=== PATIENT | male | born 1955 | race Caucasian/White ===

== ENCOUNTER 2021-04-14 06:54 | Day surgery (SDC) | payer BC ==
[~2021-04-14] VITALS: Ht 188 cm; Wt 115.8 kg
[~2021-04-14 06:54] MED LIST: ASPIRIN E.C. 8181 MG PO; CALCIUM600 M1 PO; LIPITOR20 MG PO; LOPRESSOR 225 MG/TAB PO; NEXIUM 40MG40 MG PO; NITRO-DUR0.4 MG/PAT TD; NITROSTAT0.4 MG/TAB SL; OMEGA-3 FISH1200 MG PO; PLAVIX 75MG TAB75 MG PO; PRILOSEC 20MG20 MG PO; TOPROL XL100 MG PO; VITAMIN B-1000 MCG/T PO; ZESTRIL 5MG5 MG PO; ZOFRAN 4MG T4 MG/TAB PO
--- NOTE | 2021-04-14 07:15 | NUR ---
PATIENT AMBULATED INTO ENDO UNIT WITH STEADY GAIT AND WAS ACCOMPANIED BY . HISTORY WAS COMPLETED YESTERDAY PER PHONE. CONSENT EXPLAINED AND PATIENT SIGNED. ASSESSMENT COMPLETED. LUNGS CTA. HEART S1S2 AND REGULAR. BOWEL SOUNDS HEARD. PULSES FELT. CALL LIGHT EXPLAINED AND PATIENT AND VOICED UNDERSTANDING.
[2021-04-14] MEDS ORDERED: PROSCAR 5MG5 MG (07:16)
[2021-04-14] MEDS ORDERED: LEVAQUIN 5500 MG/TA1 PO (07:17)
[2021-04-14] MEDS ORDERED: FLAGYL500 MG PO (07:17)
[2021-04-14] MEDS ORDERED: PROTONIX 40MG T40 MG PO (07:18)
[2021-04-14] MEDS ORDERED: NORVASC 10MG10 MG PO (07:18)
[2021-04-14] MEDS ORDERED: GLUCOPHAGE1000 MG PO (07:20)
[2021-04-14] MEDS ORDERED: JANUVIA 100MG100 MG PO (07:21)
[2021-04-14] MEDS ORDERED: FLOMAX 0.40.4 MG/CAP PO (07:22)
[2021-04-14 07:46] VITALS: BP 132/81; PULSE 84; TEMP 98.7
[2021-04-14] MEDS ORDERED: CANASA 1000MG1000 MG RC (09:05)
[2021-04-14 09:10] VITALS: BP 101/65; PULSE 74; TEMP 98.1
--- NOTE | 2021-04-14 09:10 | NUR ---
PATIENT TRANSPORTED PER CART FROM GI SUITE TO BAY 2 ACCOMPANIED BY THEODORA RN. PATIENT RESTING. PATIENT AMBULATED FROM CART TO CHAIR WITH 2 ASSIST AND STEADY GAIT. MONITORS APPLIED. VSS ON ROOM AIR. IN ROOM AND SPEAKS WITH PATIENT. VERBAL REPORT RECEIVED FROM THEODORA RN.
[2021-04-14 09:15] VITALS: BP 129/66; PULSE 75
--- NOTE | 2021-04-14 09:15 | NUR ---
VSS ON ROOM AIR. PATIENT GIVEN MUFFIN AND COFFEE. DR LOPEZ IN ROOM AND SPEAKS WITH PATIENT AND .
[2021-04-14 09:30] VITALS: BP 121/69; PULSE 76
--- NOTE | 2021-04-14 09:30 | NUR ---
VSS ON ROOM AIR. PATIENT WATCHING TV AND TALKING WITH . TOLERATES MUFFIN AND COFFEE WITHOUT PROBLEMS.
[2021-04-14 09:45] VITALS: BP 129/66; PULSE 79
--- NOTE | 2021-04-14 09:45 | NUR ---
VSS ON ROOM AIR. PATIENT TALKING WITH . DENIES C/O'S. 0950 IV DC'D WITH CATHETER TIP INTACT. PRESSURE AND BANDAGE APPLIED. 0955 DISCHARGE INSTRUCTIONS GIVEN VERBAL AND DISCHARGE PACKET PROVIDED. QUESTIONS ANSWERED AND PATIENT AND VOICE UNDERSTANDING. PATIENT CHANGES INTO STREET CLOTHES AND USES RESTROOM. 1006 PATIENT DISCHARGED PER WHEEL CHAIR ACCOMPANIED BY AMB RN TO PRIVATE VECHILE DRIVEN BY .
== END 2021-04-14 10:06 | disposition home or self-care (01) ==
LOC: SDCO 06:54
DX: K62.89 Other specified diseases of anus and rectum (principal); K59.00 Constipation, unspecified; R19.7 Diarrhea, unspecified; K64.0 First degree hemorrhoids; K44.9 Diaphragmatic hernia without obstruction or gangrene; K31.7 Polyp of stomach and duodenum; K29.30 Chronic superficial gastritis without bleeding; I25.10 Atherosclerotic heart disease of native coronary artery without angina pectoris; I10 Essential (primary) hypertension; E11.9 Type 2 diabetes mellitus without complications; E78.2 Mixed hyperlipidemia; E66.9 Obesity, unspecified; E78.5 Hyperlipidemia, unspecified; G47.33 Obstructive sleep apnea (adult) (pediatric); Z90.89 Acquired absence of other organs; Z79.899 Other long term (current) drug therapy; Z79.84 Long term (current) use of oral hypoglycemic drugs; Z79.82 Long term (current) use of aspirin
CPT/HCPCS: J2704; J7120

== ENCOUNTER 2021-08-26 13:17 | Day surgery (SDC) | payer BC ==
[2021-08-26] VITALS (10 sets, daily range): BP systolic 109–181; BP diastolic 51–77; PULSE 48–70; TEMP 97.5–98.1
[~2021-08-26] VITALS: Ht 190.5 cm; Wt 129.0 kg
[~2021-08-26 13:17] MED LIST changes: +CANASA 1000MG1000 MG RC; +FLAGYL500 MG PO; +FLOMAX 0.40.4 MG/CAP PO; +GLUCOPHAGE1000 MG PO; +JANUVIA 100MG100 MG PO; +LEVAQUIN 5500 MG/TA1 PO; +NORVASC 10MG10 MG PO; +PROSCAR 5MG5 MG; +PROTONIX 40MG T40 MG PO
--- NOTE | 2021-08-26 15:28 | NUR ---
Initial visit; Patient and his family thanked Security Installer for visiting with them and offering spiritual care. Patient appreciated the prayer and Security Installer offering God's blessings.
--- NOTE | 2021-08-26 23:18 | NUR ---
Patient started having discomfort to abdomen. Went to bathroom and able to have large BM. Given PRN Acetaminophen for discomfort, as patient declined B&O suppository. Peripheral IV to left hand with IV fluids running per orders. Denies SOB and dyspnea. LS CTA. HRR. BSAx4. Indwelling magallanes catheter. Bleeding around catheter site noted. Cleansed. Output red/pink, adjusted CBI. Voices no questions, needs, or concerns at this time. In bed with call light within reach.
[2021-08-27 03:31] VITALS: BP 129/60; PULSE 67; TEMP 97.9
--- NOTE | 2021-08-27 05:19 | NUR ---
Patient ambulated in hallway this morning. Denies pain and discomfort. Continues on CBI, running slow. No clots. Voices no questions, needs, or concerns at this time. In bed with call light within reach.
[2021-08-27 07:45] VITALS: BP 177/44; PULSE 86; TEMP 97.9
--- NOTE | 2021-08-27 07:45 | NUR ---
assisted up to bathroom and then back to bed, full assessment completed, see interventions for further info, CBI infusing and urine is light pink in tubing,
--- NOTE | 2021-08-27 07:55 | NUR ---
Dr Keller in to see patient
--- NOTE | 2021-08-27 08:45 | NUR ---
sitting up on side of bed and ready for catheter to be discontinued, bladder primed with about 250 ml saline, then catheter discontinued, tolerated well, instructed to call when he voids and verbalizes understanding
--- NOTE | 2021-08-27 09:49 | NUR ---
Follow-up visit; Patient thanked Data Processing Manager for looking in on him again today following his surgical procedure. Patient doing well and hopes to be discharged later today. Data Processing Manager wishes him well and offers God's blessings.
--- NOTE | 2021-08-27 10:20 | NUR ---
up to bathroom and voided approx 300ml light red urine, denies burning or pain with urination
--- NOTE | 2021-08-27 10:59 | NUR ---
has voided the third time, remains dark red but clear without clots
[2021-08-27 11:58] VITALS: BP 149/68; PULSE 82; TEMP 98.6
--- NOTE | 2021-08-27 12:15 | NUR ---
has voided the 6th time, urine remains dark red but clear
--- NOTE | 2021-08-27 13:00 | NUR ---
discharge instructions given to patient and his , verbalizes understanding, instructed by Dr Keller he is to call Dr Keller on Tuesday on his personal cell phone
--- NOTE | 2021-08-27 13:10 | NUR ---
discharged ambulatory
== END 2021-08-27 13:10 | disposition home or self-care (01) ==
LOC: SDCO 13:17 → SURG 18:00 → SDCO 08-27 13:10
DX: N35.919 Unspecified urethral stricture, male, unspecified site (principal); N40.1 Benign prostatic hyperplasia with lower urinary tract symptoms; N13.8 Other obstructive and reflux uropathy; E66.9 Obesity, unspecified
CPT/HCPCS: OP; J1200; J2250; J2704; J3010; J3480; J7120

== ENCOUNTER 2021-09-11 14:15 | Emergency (ER) | payer BC ==
[~2021-09-11] VITALS: Ht 190.5 cm; Wt 113.6 kg
[2021-09-11 14:26] VITALS: BP 132/82; TEMP 98.4
[2021-09-11 16:28] VITALS: PULSE 91
== END 2021-09-11 16:28 | disposition home or self-care (01) ==
LOC: COL.ER 14:15
DX: U07.1 COVID-19 (principal); Z87.891 Personal history of nicotine dependence; Z73.0 Burn-out